=== PATIENT | female | born 1955 | race Caucasian/White ===

== ENCOUNTER 2018-08-28 09:42 | Outpatient (CLI) | payer OTHER ==
[2018-08-28 12:57] LABS: eGFR (Non-African) > 60
== END 2018-08-28 09:43 ==
LOC: LAB 09:42
PROVIDERS: ATTEND Family Medicine
DX: Z00.00 Encounter for general adult medical examination without abnormal findings (principal); Z13.21 Encounter for screening for nutritional disorder
CPT/HCPCS: 36415; 80053; 80061; 82306